=== PATIENT | male | born 1975 | race Caucasian/White ===

== ENCOUNTER → 2024-10-24 | Outpatient (CLI) | payer MEDICAID, SELFPAY ==
--- NOTE | 2024-10-24 | XR_ITS ---
Examination: Lumbar spine, 5 views Technique: Lumbar spine AP, lateral, coned lateral lower lumbar spine, bilateral obliques 5 views Exam date and time: October 24, 2024 0719 hours INDICATIONS: Low back pain radiating down both hips beginning 5 years ago FINDINGS: Mild diffuse facet arthropathy No lumbar fracture Mild lumbar spondylosis No spondylolisthesis Early degenerative disc disease L5-S1 As clinically warranted, MRI lumbar spine without contrast follow-up would best assess for soft tissue disc protrusion producing bilateral radicular hip pain IMPRESSION: Early degenerative disc disease L5-S1
--- NOTE | 2024-10-24 | XR_ITS ---
Examination: Bilateral hips, AP pelvis, 5 views Technique: AP, lateral views both hips, AP pelvis, 5 views Exam date and time: October 24, 2024 at 0719 hours INDICATIONS: Bilateral hip pain 5 years. FINDINGS: Bilateral moderate to advanced hip osteoarthritis, joint space narrowing and mild subarticular sclerosis No hip or pelvic fracture IMPRESSION: Bilateral moderate to advanced hip osteoarthritis
== END | disposition home or self-care (01) ==
LOC: CDIM 06:50
PROVIDERS: PCP Physician Assistant; Referring Provider Physician Assistant; Visit Provider Physician Assistant
DX: M51.379 Other intervertebral disc degeneration, lumbosacral region without mention of lumbar back pain or lower extremity pain (principal); M16.0 Bilateral primary osteoarthritis of hip
CPT/HCPCS: 72110; 73523

== ENCOUNTER → 2024-12-20 | Outpatient (CLI) | payer MEDICAID, SELFPAY ==
--- NOTE | 2024-12-20 07:15 | XR_ITS ---
Examination: Abdomen sonogram, complete Date and time of exam: December 20, 2024 0733 hours INDICATIONS: Diagnosis morbid obesity, alcohol abuse, elevated liver enzymes on laboratory examination 3 weeks ago. Technique: Multiple real-time grayscale transabdominal sonographic images of the abdomen have been obtained. Findings: Normal gallbladder Normal common bile duct 0.5 cm Pancreatic head 3.0 cm Aorta not enlarged. Hepatomegaly 21 cm fatty infiltration Normal hepatopedal portal venous flow Patent IVC Right kidney 11.8 cm renal cortex 1.6 cm Left kidney 11.3 cm cortex 2.4 cm Mild bilateral renal parenchymal scar formation Spleen 10.4 cm IMPRESSION: Normal gallbladder Significant hepatomegaly, fatty liver
== END | disposition home or self-care (01) ==
LOC: CDIM 07:08
PROVIDERS: Referring Provider Physician Assistant; Visit Provider Physician Assistant
DX: K76.0 Fatty (change of) liver, not elsewhere classified (principal)
CPT/HCPCS: 76700

== ENCOUNTER 2024-12-21 08:00 | Outpatient (RCR) | payer MEDICAID, SELFPAY ==
--- NOTE | 2024-12-14 08:42 | PTNOTE_ITS ---
PT OP Initial Eval Patient Information Outpatient Physical Therapy Treatment Date: 12/14/24 Visit Reasons: back pain Medical Diagnosis: M54.16 Treatment Dx #1: Back Pain Start of Care: 12/14/24 Smoking Status Smoking Status: Never smoker Initial Assessment Subjective: Pt is a 49 y/o male reports of chronic back pain with intermittent numbess down to his hip. Pt further relate back pain to his weight. Pt is unsure why provider order physical therapy, however, he is currently on disability. Pt has limitation with sitting, standing, walking, lifting, and performing recreational activities Objective: L/S AROM: all motions are WFL Hip PROM: all motions are WFL Hip MMTs: grossly 3+/5 Assessment: Pt demonstrate back pain leading to difficulty with ADLs. Pt will attempt physical therapy if pain persist Pt will be refer back to provider for further consultation. [employer] Term and [employer] Goals 1) Increase L/S AROM WNL in 6 wks to be able to perform chores 2) Decrease back pain to 2/10 in 6 wks to be able to sit and stand more than 30 mins 3) Increase core strength WFL in 6 wks to be able to return back to work 4) Increase hip MMTs grossly to 4-/5 in 6 wks to be able to walk more than 30 mins 5) Indep with HEP Treatment Plan 1) Manual Therapy 2) Therapeutic Activities 3) Therapeutic Exercises 4) Modalities (ice, heat) Frequency and Duration: 2 x wk for 6 wks Certification Dates: 12/14/24 to 03/16/25 Procedure Charges OP PT Eval Mod Complex 30 minutes: Yes
--- NOTE | 2024-12-21 09:16 | PT.ODAYNRPT ---
PT Outpatient Daily Note OP Daily Note Outpatient Physical Therapy Treatment Date: 12/21/24 Visit Reasons: back pain Subjective: Pt's back is about the same and continues to hurt. Objective: Please see flow chart for list of ther ex performed Assessment: supine heat helped patient tolerate exercises. Pt had difficulty with left Hs stretch due to sciatic nerve irritation; modified stretch to 30 deg of SLR which patient was able tolerate stretching longer Plan: Continue with PT Length of Time (minutes) of Treatment: 30 Minutes Procedure Charges Therapeutic Exercise 30 minutes: Yes
== END 2024-12-26 23:59 | disposition home or self-care (01) ==
LOC: CPTX 08:00
PROVIDERS: PCP Physician Assistant; Referring Provider Physician Assistant; Visit Provider Physician Assistant
DX: M54.16 Radiculopathy, lumbar region (principal); R26.2 Difficulty in walking, not elsewhere classified
CPT/HCPCS: 97110; 97162

== ENCOUNTER 2025-01-10 08:00 | Outpatient (RCR) | payer MEDICAID, SELFPAY ==
--- NOTE | 2024-12-27 08:28 | PT.ODAYNRPT ---
PT Outpatient Daily Note OP Daily Note Outpatient Physical Therapy Treatment Date: 12/27/24 Visit Reasons: back pain Subjective: Pt reports he does not have back problem, just overweight and the weight of his belly puts a lot of stress on his back. Pt is limited with long distance waling and standing for prolonged periods. Objective: Please see flow sheet for ther ex list. Assessment: Interventions modified pt just had R digit trigger release. Plan: Continue with poC. Length of Time (minutes) of Treatment: 30 Minutes Procedure Charges Therapeutic Exercise 30 minutes: Yes
--- NOTE | 2024-12-29 09:29 | PT.ODAYNRPT ---
PT Outpatient Daily Note OP Daily Note Outpatient Physical Therapy Treatment Date: 12/29/24 Visit Reasons: back pain Subjective: No new complaints. Objective: Please see flow sheet for ther ex list. Assessment: Pt demonstrates poor activity tolerance with closed chain interventions due to pain response. Plan: Continue with poC. Length of Time (minutes) of Treatment: 30 Minutes Procedure Charges Therapeutic Exercise 30 minutes: Yes
--- NOTE | 2025-01-05 09:05 | PTNOTE_ITS ---
PT Outpatient Daily Note OP Daily Note Outpatient Physical Therapy Treatment Date: 01/05/25 Visit Reasons: back pain Subjective: Pt reports back is doing ok, like he said before his back is not the problem, it the belly . Objective: Please see flow sheet for ther ex list. Assessment: Pt able to tolerated more standing interventions today compared to previous ses sions. Plan: Continue with pOC. Length of Time (minutes) of Treatment: 30 Minutes Procedure Charges Therapeutic Exercise 30 minutes: Yes
--- NOTE | 2025-01-10 08:20 | PT.ODS1RPT ---
PT OP Progress/Discharge Note Date of Service: 01/10/25 Progress Note/DC Note Progress Note/Discharge Note: DC Note Patient Information Visit Reasons: back pain Medical Diagnosis: Back Pain Treatment Dx #1: Back Pain Service Discharge Date: 01/10/25 Status Subjective: Pt's back is fine. Pt mentioned it's more of his belly. Pt still has numbness down the legs intermittently. Pt still has limitation with prolonged sitting, standing, chores, and performing recreational activities. Objective: L/S AROM: all motions are WNL Hip PROM: all motions are WNL Hip MMTs: grossly 3+/5 Assessment: Pt demonstrate functional spinal mobility and core strength, however, main concerns is weight as a barrier to his functional ADLs progression. At this time Pt will no longer benefit from physical therapy due to plateau towards goals. Pt was instructed on HEP last session and educated to continue exercises to maintain overall mobility. Pt performed all exercises safely, thank you for your referrals. Plan: D/C home with HEP and follow up with MD LLOYD Procedure Charges Therapeutic Exercise 30 minutes: Yes
== END 2025-01-25 23:59 | disposition home or self-care (01) ==
LOC: CPTX 08:00
PROVIDERS: PCP Physician Assistant; Referring Provider Physician Assistant; Visit Provider Physician Assistant
DX: M54.16 Radiculopathy, lumbar region (principal); R26.2 Difficulty in walking, not elsewhere classified
CPT/HCPCS: 97110